=== PATIENT | female | born 1970 | race Caucasian/White ===

== ENCOUNTER → 2024-03-20 | Outpatient (CLI) | payer OTHER ==
[~2024-03-20] MED LIST: ANAPROX DS550 MG PO; CIPROFLOXACIN500 MG PO; KEFLEX500 MG PO; LOMOTIL 0.025 M1 TA1 PO; MOTRIN800 MG PO; NKHM
== END | disposition home or self-care (01) ==
LOC: LAB 14:59 → D 14:59
PROVIDERS: ATTEND Nurse Practitioner Family
DX: R63.4 Abnormal weight loss (principal); Z68.33 Body mass index [BMI] 33.0-33.9, adult